=== PATIENT | male | born 1995 | race Caucasian/White ===

== ENCOUNTER 2019-10-13 17:03 | Emergency (ER) | payer SELFPAY ==
[~2019-10-13] VITALS: Ht 170.2 cm; Wt 68.2 kg
[2019-10-13 17:07] VITALS: BP 144/99
[2019-10-13 19:13] VITALS: PULSE 73; TEMP 98.9
== END 2019-10-13 19:13 | disposition home or self-care (01) ==
LOC: COL.ER 17:03
DX: S01.81XA Laceration without foreign body of other part of head, initial encounter (principal); Z23 Encounter for immunization; V27.4XXA Motorcycle driver injured in collision with fixed or stationary object in traffic accident, initial encounter; Y93.55 Activity, bike riding; Y92.488 Other paved roadways as the place of occurrence of the external cause